=== PATIENT | female | born 1975 | race Hispanic/Latino ===

== ENCOUNTER 2017-02-25 13:13 | Day surgery (SDC) | payer OTHER ==
[~2017-02-25] VITALS: Ht 172.7 cm; Wt 73.9 kg
[~2017-02-25 13:13] MED LIST: ALLEGRA60 MG PO; BIOTIN2500 MCG PO; CLARITIN10 MG PO; FIBER GUMMIES1 EACH PO; FLUTICASONE PRO16 GM BOTH NARES; LINZESS290 MCG PO; MOTRIN800 MG PO; NORCO 5/3251 TABLET PO; NORCO 7.5/321 TABLET PO; PATANOL OP100 DROP/5 BOTH EYES; VALIUM5 MG PO; VITAMIN B122500 MCG PO; WOMEN'S BIOMUL1 EACH PO
== END 2017-02-25 14:53 | disposition home or self-care (01) ==
LOC: PAIN 13:13 → SDC 13:45 → PAIN 13:45
PROC: 3E0S33Z Introduction of Anti-inflammatory into Epidural Space, Percutaneous Approach (ICD-10-PCS; principal; 2017-02-25)
DX: M54.12 Radiculopathy, cervical region (principal); M50.223 Other cervical disc displacement at C6-C7 level; F41.9 Anxiety disorder, unspecified; J30.9 Allergic rhinitis, unspecified; E66.3 Overweight; Z68.26 Body mass index [BMI] 26.0-26.9, adult; Z88.5 Allergy status to narcotic agent
CPT/HCPCS: J1030; J2250; J3010

== ENCOUNTER 2017-03-25 06:38 | Day surgery (SDC) | payer OTHER ==
[~2017-03-25] VITALS: Ht 171.4 cm; Wt 75.8 kg
[~2017-03-25 06:38] MED LIST changes: +CLARITIN,ALAVAR10 MG PO; +VICODIN 5-3001 EACH PO
== END 2017-03-25 09:15 | disposition home or self-care (01) ==
LOC: PAIN 06:38 → SDC 07:30 → PAIN 09:15
DX: M50.11 Cervical disc disorder with radiculopathy, high cervical region (principal); Z87.891 Personal history of nicotine dependence; M79.1 Myalgia; Z79.891 Long term (current) use of opiate analgesic; Z79.899 Other long term (current) drug therapy
CPT/HCPCS: J1030; J2250; J3010; S0020

== ENCOUNTER 2017-03-30 14:05 | Day surgery (SDC) | payer OTHER ==
[~2017-03-30] VITALS: Ht 171.4 cm; Wt 75.8 kg
== END 2017-03-30 15:44 | disposition home or self-care (01) ==
LOC: PAIN 14:05 → SDC 14:30 → PAIN 14:30
DX: M50.11 Cervical disc disorder with radiculopathy, high cervical region (principal); Z87.891 Personal history of nicotine dependence; E66.3 Overweight; Z68.27 Body mass index [BMI] 27.0-27.9, adult; Z79.891 Long term (current) use of opiate analgesic; Z79.899 Other long term (current) drug therapy
CPT/HCPCS: J1030; J2250; J3010; S0020

== ENCOUNTER 2017-05-24 13:44 | Day surgery (SDC) | payer OTHER ==
[~2017-05-24] VITALS: Ht 170.2 cm; Wt 72.6 kg
== END 2017-05-24 15:43 | disposition home or self-care (01) ==
LOC: PAIN 13:44 → SDC 14:00 → PAIN 15:43
DX: M47.22 Other spondylosis with radiculopathy, cervical region (principal); M50.11 Cervical disc disorder with radiculopathy, high cervical region; M79.1 Myalgia; Z79.891 Long term (current) use of opiate analgesic; Z87.891 Personal history of nicotine dependence
CPT/HCPCS: J1030; J2250; J3010; S0020

== ENCOUNTER 2017-06-21 14:27 | Day surgery (SDC) | payer OTHER ==
[~2017-06-21] VITALS: Ht 170.2 cm; Wt 77.3 kg
[~2017-06-21 14:27] MED LIST changes: +MIRENA52 MG IY; +VOLTAREN75 MG PO; +ZANAFLEX2 M1 PO
== END 2017-06-21 16:00 | disposition home or self-care (01) ==
LOC: PAIN 14:27 → SDC 15:00 → PAIN 16:00
DX: M47.22 Other spondylosis with radiculopathy, cervical region (principal); M50.11 Cervical disc disorder with radiculopathy, high cervical region; M79.1 Myalgia; Z79.891 Long term (current) use of opiate analgesic; Z87.891 Personal history of nicotine dependence
CPT/HCPCS: J1030; J2250; J3010; S0020